=== PATIENT | female | born 1940 | race Caucasian/White ===

== ENCOUNTER 2020-07-21 12:15 | Inpatient (IN) | payer MEDICARE ==
[~2020-07-21] VITALS: Ht 162.6 cm; Wt 39.0 kg
[2020-07-21] MEDS ORDERED: ASPIRIN325 MG PO (12:24)
[2020-07-21] MEDS ORDERED: XANAX0.25 MG PO (12:24)
[2020-07-21] MEDS ORDERED: COREG6.25 MG PO (12:25)
[2020-07-21] MEDS ORDERED: ASPIRIN EC81 MG PO (12:25)
[2020-07-21] MEDS ORDERED: CLEOCIN PA75 MG/5 ML PO (12:26)
[2020-07-21] MEDS ORDERED: VITAMIN D 22000 UNIT PO (12:26)
[2020-07-21] MEDS ORDERED: CARAFATE1 G/10 ML PO (12:27)
[2020-07-21] MEDS ORDERED: ZOCOR20 MG PO (12:27)
[2020-07-21] MEDS ORDERED: COZAAR25 MG PO (12:27)
[2020-07-21] MEDS ORDERED: OMEPRAZOLE40 MG PO (12:27)
[2020-07-21] MEDS ORDERED: ULTRAM50 MG PO (12:28)
[2020-07-21 12:56] LABS: BASOPHILS 0.5 % (0-2); EOSINOPHILS 1.7 % (0-7); HEMATOCRIT 33.8 % (36.0-48.0); HEMOGLOBIN 11.2 g/dL (12-16); LYMPHOCYTES 9.3 % (15-50); MCH 28.3 pg (26.0-34.0); MCV 85.5 fL (80.0-100.0); MEAN PLATELET VOLUME 6.8 fL (7.4-10.4); MONOCYTES 7.5 % (2-11); PLATELET COUNT 202 10x3/uL (130-400); RBC 3.95 10x6/uL (4.00-5.40); RDW 15.3 % (11.5-14.5); WBC 8.3 10x3/uL (4.8-10.8)
[2020-07-21 13:09] LABS: ALBUMIN 2.2 g/dL (3.4-5.0); ALKALINE PHOSPHATASE 208 U/L (30-120); ALT (SGPT) 20 U/L (10-68); BILIRUBIN - TOTAL 1.14 mg/dL (0.2-1.3); CALCIUM 8.2 mg/dL (8.5-10.1); CARBON DIOXIDE 25.3 mmol/L (21.0-32.0); CHLORIDE - SERUM 104 mmol/L (98-107); CREATININE - SERUM 0.6 mg/dL (0.6-1.3); GLUCOSE 119 mg/dL (74-106); PROTEIN - SERUM 6.2 g/dL (6.4-8.2); UREA NITROGEN 20 mg/dL (7-18); eGFR NON AFRICAN AMERICAN > 90 mL/min (90-120)
[2020-07-21 13:25] LABS: CALC OSMOLALITY 282 mosm/kg (275-300); POTASSIUM - SERUM 3.1 mmol/L (3.5-5.1); SODIUM 140 mmol/L (136-145)
[2020-07-21 14:23] VITALS: BP 152/84
[2020-07-21 14:43] LABS: BILIRUBIN 1+ (NEGATIVE); KETONE MODERATE mg/dL (NEGATIVE); NITRITE NEGATIVE (NEGATIVE); UROBILINOGEN 2 mg/dL (< 2)
[2020-07-21 14:45] LABS: BACTERIA MANY HPF (NONE SEEN); SQUAMOUS EPITHELIAL 0-5 HPF (0-4)
[2020-07-21 16:00] VITALS: BP 153/86
--- NOTE | 2020-07-21 17:27 | NUR ---
REPORT TO ISMAEL CROCKETT
[2020-07-21 20:12] VITALS: BP 149/84
--- NOTE | 2020-07-21 20:30 | NUR ---
PT SITTING UP IN BED WITHOUT DISTRESS, ORIENTED TO SELF AND PLACE. REQUESTED AND GIVEN TRAMADOL FOR PAIN TO COCCYX AREA. WOUND VAC IN PLACE TO COCCYX. PT WAS TAKING HS MEDICATIONS WITH WATER SHE BEGAN CHOKING ON THE WATER. INCREASED HOB AND PT CONTINUED TO HAVE DIFFICULTY SWALLWING AND EVEN SPIT UP THE LAST SIP OF WATER SHE TOOK. PT STATES SHE HAS ALWAYS HAD TROUBLE SWALLOWING AND STATES SOMEONE WAS SUPPOSED TO COME TO HER HOUSE TO DO A SWALLOW STUDY SOON. MADE PT NPO AT THIS TIME AND EXPLAINED TO PT WE WOULD GET AN ORDER FOR A SWALLOW EVAL TOMORROW. PT DENIES FURTHER NEEDS AT THIS TIME. CL IN REACH, BED ALARM ON
[2020-07-21 23:12] VITALS: BMI 14.8
[2020-07-22 04:00] VITALS: BP 121/70
[2020-07-22 07:12] LABS: ALKALINE PHOSPHATASE 183 U/L (30-120); ALT (SGPT) 18 U/L (10-68); BILIRUBIN - TOTAL 0.97 mg/dL (0.2-1.3); CALC OSMOLALITY 277 mosm/kg (275-300); CARBON DIOXIDE 23.2 mmol/L (21.0-32.0); CHLORIDE - SERUM 106 mmol/L (98-107); CREATININE - SERUM 0.5 mg/dL (0.6-1.3); GLUCOSE 83 mg/dL (74-106); POTASSIUM - SERUM 3.5 mmol/L (3.5-5.1); PROTEIN - SERUM 5.8 g/dL (6.4-8.2); SODIUM 139 mmol/L (136-145); UREA NITROGEN 16 mg/dL (7-18); eGFR NON AFRICAN AMERICAN > 90 mL/min (90-120)
[2020-07-22 07:14] LABS: BASOPHILS 0.6 % (0-2); EOSINOPHILS 1.6 % (0-7); HEMATOCRIT 31.9 % (36.0-48.0); HEMOGLOBIN 10.7 g/dL (12-16); LYMPHOCYTES 11.4 % (15-50); MCHC 33.6 g/dL (31.0-37.0); MCV 86.2 fL (80.0-100.0); MEAN PLATELET VOLUME 7.4 fL (7.4-10.4); MONOCYTES 6.4 % (2-11); WBC 6.8 10x3/uL (4.8-10.8)
[2020-07-22 07:24] LABS: PLATELET COUNT 144 10x3/uL (130-400)
[2020-07-22 08:42] VITALS: BP 130/81
--- NOTE | 2020-07-22 10:07 | NUR ---
ALERT AND ORIENTED. ASSESSMENT COMPLETE. DENIES NEEDS. BED LOW. CALL PAULSON AND PERSONAL ITEMS IN REACH. SPOKE WITH JAZMYN AT [facility] ORDERS PLACED TO CONTINUE WOUND VAC CHANGED THREE TIMES WEEKLY PER DR LEÓN. ALSO SPOKE WITH PATIENT'S SON, LEE. SECURITY CODE GIVEN TO LEE PER PATIENT REQUEST. DENIES QUESTIONS OR CONCERNS AT THIS TIME.
--- NOTE | 2020-07-22 12:04 | NUR ---
SPECIALTY AIR BED PLACED ON BED.
[2020-07-22 12:05] VITALS: Ht 162.6 cm; Wt 39.0 kg
[2020-07-22 12:53] VITALS: BP 135/76
--- NOTE | 2020-07-22 13:30 | NUR ---
PATIENT REFUSING WOUND VAC CHANGE AT THIS TIME. WILL ATTEMP AGAIN.
--- NOTE | 2020-07-22 16:00 | NUR ---
PATIENT REFUSING WOUND VAC CHANGE AT THIS TIME AGAIN. STATES TO COME BACK LATER.
[2020-07-22 17:05] VITALS: BP 130/70
--- NOTE | 2020-07-22 17:43 | NUR ---
WOUND VAC DRSG CHANGED TO PATIENT'S SACRAL AREA. PATIENT'S HOME WOUND VAC DURING DRSG CHANGE. PATIENT DID NOT BRING PHARMACEUTICAL SALESPERSON TO HOSPITAL. CALLED HOUSE SUP FOR HOSPITAL WOUND VAC. WAITING WOUND VAC.
--- NOTE | 2020-07-22 17:45 | NUR ---
HOUSE SUP WOULD NOT BRING WOUND VAC TO FLOOR. STATES PATIENT WAS HERE ALL DAY AND COULD HAVE CALLED EARLIER. PATIENT'S HOME WOUND VAC JUST AT 1730. WENT TO PACU TO GET WOUND VAC. FORM FILLED OUT BY NURSE AND ON PATIENT'S WALL. NEW WOUND VAC PLACED.
[2020-07-22 21:57] VITALS: BP 122/70
[2020-07-23 01:40] VITALS: BP 134/71
--- NOTE | 2020-07-23 03:56 | NUR ---
I have reviewed this patient and I concur with the Shift Assessment completed by the Licensed Practical Nurse today this shift.
[2020-07-23 05:41] LABS: BASOPHILS 0.5 % (0-2); EOSINOPHILS 1.3 % (0-7); HEMOGLOBIN 10.7 g/dL (12-16); MCH 29.5 pg (26.0-34.0); MCHC 34.6 g/dL (31.0-37.0); MCV 85.2 fL (80.0-100.0); MEAN PLATELET VOLUME 7.4 fL (7.4-10.4); MONOCYTES 7.1 % (2-11); NEUTROPHILS 81.1 % (40-80); PLATELET COUNT 138 10x3/uL (130-400); RBC 3.64 10x6/uL (4.00-5.40); RDW 15.2 % (11.5-14.5)
[2020-07-23 05:45] LABS: WBC 4.5 10x3/uL (4.8-10.8)
[2020-07-23 06:09] LABS: CALC OSMOLALITY 280 mosm/kg (275-300); CALCIUM 7.6 mg/dL (8.5-10.1); CARBON DIOXIDE 23.9 mmol/L (21.0-32.0); CHLORIDE - SERUM 107 mmol/L (98-107); CREATININE - SERUM 0.5 mg/dL (0.6-1.3); SODIUM 139 mmol/L (136-145); UREA NITROGEN 12 mg/dL (7-18); eGFR NON AFRICAN AMERICAN > 90 mL/min (90-120)
[2020-07-23 06:11] LABS: GLUCOSE 144 mg/dL (74-106)
[2020-07-23 06:38] VITALS: BP 150/70
[2020-07-23 09:28] VITALS: BP 144/66
[2020-07-23 12:16] VITALS: BP 158/84
[2020-07-23 20:00] VITALS: BP 120/75
[2020-07-24 00:53] VITALS: BP 155/87
--- NOTE | 2020-07-24 02:30 | NUR ---
PT'S IV LEAKING. RESITED 20G IV TO LEFT AC BY ISMAEL CANO. PT C/O PAIN 8 AT COCCYX. GAVE MORPHINE 2MG IV PUSH. CHANGED PT INCONTINENT OF B/B. NO OTHER NEEDS. WILL CONTINUE TO MONITOR.
[2020-07-24 04:00] VITALS: BP 151/83
[2020-07-24 08:53] VITALS: BP 159/104
--- NOTE | 2020-07-24 09:45 | NUR ---
PT RESTING QUIETLY IN BED. NO ACUTE DISTRESS NOTED. IV TO LEFT AC WITH D5NS @ 75ML/HR INFUSING VIA PUMP. SITE WITHOUT REDNESS OR EDEMA. WOUND VAC INTACT TO COCCYX AREA. PT DENIES FURTHER NEEDS AT THIS TIME. CL WITHIN REACH. ENCOURAGED TO CALL WITH NEEDS. CONTINUE POC
[2020-07-24 12:58] VITALS: BP 120/51
[2020-07-24 13:28] LABS: CALC OSMOLALITY 281 mosm/kg (275-300); CALCIUM 7.7 mg/dL (8.5-10.1); CARBON DIOXIDE 21.8 mmol/L (21.0-32.0); CHLORIDE - SERUM 110 mmol/L (98-107); CREATININE - SERUM 0.6 mg/dL (0.6-1.3); GLUCOSE 141 mg/dL (74-106); POTASSIUM - SERUM 3.2 mmol/L (3.5-5.1); SODIUM 141 mmol/L (136-145); UREA NITROGEN 11 mg/dL (7-18); eGFR NON AFRICAN AMERICAN > 90 mL/min (90-120)
[2020-07-24 17:11] VITALS: BP 177/104
[2020-07-24 20:00] VITALS: BP 142/82
[2020-07-25] VITALS: BP 153/92
[2020-07-25 04:00] VITALS: BP 131/74
[2020-07-25 05:31] LABS: BASOPHILS 0.7 % (0-2); EOSINOPHILS 2.4 % (0-7); HEMATOCRIT 35.1 % (36.0-48.0); HEMOGLOBIN 11.8 g/dL (12-16); LYMPHOCYTES 12.5 % (15-50); MCH 29.4 pg (26.0-34.0); MCHC 33.7 g/dL (31.0-37.0); MEAN PLATELET VOLUME 6.8 fL (7.4-10.4); NEUTROPHILS 76.4 % (40-80); RBC 4.02 10x6/uL (4.00-5.40); RDW 15.5 % (11.5-14.5)
[2020-07-25 05:53] LABS: CALC OSMOLALITY 289 mosm/kg (275-300); CALCIUM 7.6 mg/dL (8.5-10.1); CHLORIDE - SERUM 112 mmol/L (98-107); CREATININE - SERUM 0.6 mg/dL (0.6-1.3); GLUCOSE 135 mg/dL (74-106); SODIUM 145 mmol/L (136-145); UREA NITROGEN 11 mg/dL (7-18); eGFR NON AFRICAN AMERICAN > 90 mL/min (90-120)
[2020-07-25 05:55] LABS: MCV 87.3 fL (80.0-100.0); PLATELET COUNT 217 10x3/uL (130-400); WBC 7.4 10x3/uL (4.8-10.8)
[2020-07-25 06:19] LABS: POTASSIUM - SERUM 2.8 mmol/L (3.5-5.1)
--- NOTE | 2020-07-25 07:16 | NUR ---
0700 BEDSIDE REPORT RECEIVED RESTING QUIETLY IN BED WITH EYES CLOSED
--- NOTE | 2020-07-25 08:24 | NUR ---
0800 DR WALLER AT BEDSIDE CONVERSING WITH PATIENT PLANNING CASE MANAGEMENT FOR POSSIBLE PLACEMENT IN [facility]
[2020-07-25 10:07] VITALS: BP 153/97
[2020-07-25 12:50] VITALS: BP 157/99
--- NOTE | 2020-07-25 14:06 | MORECARE ---
CASE MANAGEMENT DISCHARGE SUMMARY PATIENT: DONALD MARIE UNIT: [id number] ADM DATE: 07/22/20 AGE: 79 : 42 SEX: F ROOM/BED: [facility] AUTHOR: MAZINDOC PHYSICIAN: REFERRING PHYSICIAN: IVÁN LEÓN MD DATE OF SERVICE: 07/25/20 Case Management Discharge Planning Summary DCP REVIEW SUMMARY ANTICIPATED D/C DATE: EXPECTED LOS : CASE STATUS: DCP Initiated INITIAL REVIEW: 07/21/2020 INITIAL REVIEWER: Holly Gonzalez FINAL DISCHARGE DISPOSITION: : FINAL REVIEWER: FINAL REVIEW DATE: DCP Focus Questions & Answers DCP Screen QUESTION: ANSWER High Risk Factors: : Polypharmacy (greater than 10 meds) DCP Evaluation QUESTION: ANSWER Patient's ability to cope with chronic illness : d. No chronic illness Would patient like to participate in any Care Coordination programs (if applicable): : Not applicable Mental health screen: : No mental health history DCP Re-evaluation QUESTION: ANSWER Would patient like to participate in any Care Coordination programs (if applicable): : Not applicable PATIENT: DONALD MARIE ENCOUNTER: [id number] MEDICAL RECORD#: [id number] ADMISSION DATE: 07/22/2020 DISCHARGE DATE: ATTENDING MD: IVÁN ANGELES : AGE: 79 MARITAL STATUS: M DC PLAN ID: [id number] FACILITY: [facility] PRINTED ON: 07/25/20 14:06 CT All edits/amendments must be made on the electronic document DICTATION DATE: 07/25/201405 LEATHER ROLLER: FRANCESCO 07/25/20 1406 RPT#: [id number] DC DATE: STATUS: ADM IN [facility] [address] [place] [address] END OF REPORT
--- NOTE | 2020-07-25 14:44 | MORECARE ---
CASE MANAGEMENT DISCHARGE SUMMARY PATIENT: DONALD MARIE UNIT: [id number] ADM DATE: 07/22/20 AGE: 79 : 42 SEX: F ROOM/BED: D.2206 AUTHOR: MAZIN,DOC PHYSICIAN: REFERRING PHYSICIAN: IVÁN LEÓN MD DATE OF SERVICE: 07/25/20 Case Management Discharge Planning Summary COMMENTS ENTERED DATE: 07/25/20 14:32 CT COMMENT TYPE: Discharge Planning REVIEWER: Holly Gonzalez CLINICALS FAXED TO [facility]. WAITING CALL BACK. Appended by Holly Gonzalez on 07/25/2020 14:33 CDT: ERROR! CLINICALS WERE FAXED TO [facility] FOR SNF. DCP REVIEW SUMMARY ANTICIPATED D/C DATE: EXPECTED LOS : CASE STATUS: DCP Initiated INITIAL REVIEW: 07/21/2020 INITIAL REVIEWER: Holly Gonzalez FINAL DISCHARGE DISPOSITION: : FINAL REVIEWER: FINAL REVIEW DATE: DCP Focus Questions & Answers DCP Screen QUESTION: ANSWER High Risk Factors: : Polypharmacy (greater than 10 meds) DCP Evaluation QUESTION: ANSWER Patient's ability to cope with chronic illness : d. No chronic illness Would patient like to participate in any Care Coordination programs (if applicable): : Not applicable Mental health screen: : No mental health history DCP Re-evaluation QUESTION: ANSWER Would patient like to participate in any Care Coordination programs (if applicable): : Not applicable PROVIDER NETWORKING REVIEW DATE: 07/25/2020 SERVICE TYPE: [facility] REVIEWER: Holly Gonzalez PATIENT: DONALD MARIE ENCOUNTER: [id number] MEDICAL RECORD#: [id number] ADMISSION DATE: 07/22/2020 DISCHARGE DATE: ATTENDING MD: IVÁN ANGELES : AGE: 79 MARITAL STATUS: M DC PLAN ID: [id number] FACILITY: [facility] PRINTED ON: 07/25/20 14:44 CT All edits/amendments must be made on the electronic document DICTATION DATE: 07/25/201443 LANDSCAPER HELPER: FRANCESCO 07/25/201443 RPT#: [id number] DC DATE: STATUS: ADM IN [facility] [address] [place] [address] END OF REPORT
[2020-07-25 18:13] VITALS: BP 147/101
--- NOTE | 2020-07-25 19:45 | NUR ---
RECEIVED BEDSIDE REPORT. PT LAYING IN BED, A&O CONFUSED AT TIMES. PIV TO LEFT FOREARM PATENT AND INFUSING NO REDNESS OR SWELLING. STAGE 2 ULCER, WOUND VAC IN PLACE, DRAINING TO SUCTION. PT BEDFAST, TOTAL CARE. EDUCATED PT ON CL AND NEEDS, VERBALIZED UNDERSTANDING. BED LOW, CL IN REACH.
[2020-07-25 20:00] VITALS: BP 98/69
[2020-07-26] VITALS: BP 111/67
[2020-07-26 04:00] VITALS: BP 114/70
[2020-07-26 05:01] LABS: BASOPHILS 0.5 % (0-2); EOSINOPHILS 1.4 % (0-7); HEMATOCRIT 32.6 % (36.0-48.0); LYMPHOCYTES 12.1 % (15-50); MCH 28.9 pg (26.0-34.0); MCHC 33.8 g/dL (31.0-37.0); MCV 85.4 fL (80.0-100.0); MONOCYTES 7.4 % (2-11); NEUTROPHILS 78.6 % (40-80); PLATELET COUNT 188 10x3/uL (130-400); RBC 3.82 10x6/uL (4.00-5.40); RDW 15.4 % (11.5-14.5); WBC 6.9 10x3/uL (4.8-10.8)
[2020-07-26 05:16] LABS: CALC OSMOLALITY 292 mosm/kg (275-300); CALCIUM 7.2 mg/dL (8.5-10.1); CARBON DIOXIDE 19.1 mmol/L (21.0-32.0); CHLORIDE - SERUM 115 mmol/L (98-107); CREATININE - SERUM 0.6 mg/dL (0.6-1.3); GLUCOSE 176 mg/dL (74-106); PHOSPHOROUS 2.3 mg/dL (2.5-4.9); SODIUM 145 mmol/L (136-145); UREA NITROGEN 13 mg/dL (7-18); eGFR NON AFRICAN AMERICAN > 90 mL/min (90-120)
[2020-07-26 05:18] LABS: POTASSIUM - SERUM 3.8 mmol/L (3.5-5.1)
--- NOTE | 2020-07-26 08:21 | MORECARE ---
CASE MANAGEMENT DISCHARGE SUMMARY PATIENT: DONALD MARIE UNIT: [id number] ADM DATE: 07/22/20 AGE: 79 : 42 SEX: F ROOM/BED: D.2206 AUTHOR: MAZIN,DOC PHYSICIAN: REFERRING PHYSICIAN: IVÁN LEÓN MD DATE OF SERVICE: 07/26/20 Case Management Discharge Planning Summary COMMENTS ENTERED DATE: 07/26/20 8:11 CT COMMENT TYPE: Discharge Planning REVIEWER: Mitzi Crawley CALLED AND LEFT MESSAGE WITH GENNA AT [facility] ABOUT THE REFERRAL WILL WAIT TO HEAR BACK FROM HER ENTERED DATE: 07/25/20 14:32 CT COMMENT TYPE: Discharge Planning REVIEWER: Holly Gonzalez CLINICALS FAXED TO [facility]. WAITING CALL BACK. Appended by Holly Gonzalez on 07/25/2020 14:33 CDT: ERROR! CLINICALS WERE FAXED TO [facility] FOR SNF. DCP REVIEW SUMMARY ANTICIPATED D/C DATE: EXPECTED LOS : CASE STATUS: DCP Initiated INITIAL REVIEW: 07/21/2020 INITIAL REVIEWER: Holly Gonzalez FINAL DISCHARGE DISPOSITION: : FINAL REVIEWER: FINAL REVIEW DATE: DCP Focus Questions & Answers DCP Screen QUESTION: ANSWER High Risk Factors: : Polypharmacy (greater than 10 meds) DCP Evaluation QUESTION: ANSWER Patient's ability to cope with chronic illness : d. No chronic illness Would patient like to participate in any Care Coordination programs (if applicable): : Not applicable Mental health screen: : No mental health history DCP Re-evaluation QUESTION: ANSWER Would patient like to participate in any Care Coordination programs (if applicable): : Not applicable PROVIDER NETWORKING REVIEW DATE: 07/25/2020 SERVICE TYPE: Nursing Home Facility REVIEWER: Holly Gonzalez PATIENT: DONALD MARIE ENCOUNTER: [id number] MEDICAL RECORD#: [id number] ADMISSION DATE: 07/22/2020 DISCHARGE DATE: ATTENDING MD: IVÁN ANGELES : AGE: 79 MARITAL STATUS: M DC PLAN ID: [id number] FACILITY: [facility] PRINTED ON: 07/26/20 8:21 CT All edits/amendments must be made on the electronic document DICTATION DATE: 07/26/20820 NARROW FABRIC LOOM FIXER: FRANCESCO 07/26/20820 RPT#: [id number] DC DATE: STATUS: ADM IN [facility] [address] [place] [address] END OF REPORT
[2020-07-26 08:56] VITALS: BP 125/72
--- NOTE | 2020-07-26 09:57 | MORECARE ---
CASE MANAGEMENT DISCHARGE SUMMARY PATIENT: DONALD MARIE UNIT: [id number] ADM DATE: 07/22/20 AGE: 79 : 42 SEX: F ROOM/BED: D.2206 AUTHOR: MAZIN,DOC PHYSICIAN: REFERRING PHYSICIAN: IVÁN LEÓN MD DATE OF SERVICE: 07/26/20 Case Management Discharge Planning Summary COMMENTS ENTERED DATE: 07/26/20 9:51 CT COMMENT TYPE: Discharge Planning REVIEWER: Mitzi Crawley SPOKE WITH GENNA AT [facility] , SOON THE OT AND PT MALIKAL GET IN THE SYSTEM, I WILL SEND THEM TO HER AND SHE WILL GET BACK WITH ME CM TO FOLLOW AND ASSIST ENTERED DATE: 07/26/20 8:11 CT COMMENT TYPE: Discharge Planning REVIEWER: Mitzi Crawley CALLED AND LEFT MESSAGE WITH GENNA AT [facility] ABOUT THE REFERRAL WILL WAIT TO HEAR BACK FROM HER ENTERED DATE: 07/25/20 14:32 CT COMMENT TYPE: Discharge Planning REVIEWER: Holly Gonzalez CLINICALS FAXED TO [facility]. WAITING CALL BACK. Appended by Holly Gonzalez on 07/25/2020 14:33 CDT: ERROR! CLINICALS WERE FAXED TO [facility] FOR SNF. DCP REVIEW SUMMARY ANTICIPATED D/C DATE: EXPECTED LOS : CASE STATUS: DCP Initiated INITIAL REVIEW: 07/21/2020 INITIAL REVIEWER: Holly Gonzalez FINAL DISCHARGE DISPOSITION: : FINAL REVIEWER: FINAL REVIEW DATE: DCP Focus Questions & Answers DCP Screen QUESTION: ANSWER High Risk Factors: : Polypharmacy (greater than 10 meds) DCP Evaluation QUESTION: ANSWER Patient's ability to cope with chronic illness : d. No chronic illness Would patient like to participate in any Care Coordination programs (if applicable): : Not applicable Mental health screen: : No mental health history DCP Re-evaluation QUESTION: ANSWER Would patient like to participate in any Care Coordination programs (if applicable): : Not applicable PROVIDER NETWORKING REVIEW DATE: 07/25/2020 SERVICE TYPE: [facility]irement Facility REVIEWER: Holly Gonzalez PATIENT: DONALD MARIE ENCOUNTER: [id number] MEDICAL RECORD#: [id number] ADMISSION DATE: 07/22/2020 DISCHARGE DATE: ATTENDING MD: IVÁN ANGELES : AGE: 79 MARITAL STATUS: M DC PLAN ID: [id number] FACILITY: [facility] PRINTED ON: 07/26/20 9:57 CT All edits/amendments must be made on the electronic document DICTATION DATE: 07/26/20956 PATHOLOGY SECRETARY: FRANCESCO 07/26/20956 RPT#: [id number] DC DATE: STATUS: ADM IN [facility] [address] [place] [address] END OF REPORT
[2020-07-26 12:38] VITALS: BP 116/5
--- NOTE | 2020-07-26 12:53 | NUR ---
Nutrition follow-up: Pt sleeping during RD rounds. RD will visit at a later time. Diet order: Regular mechanical soft with ground meat; no straws PO intake ~25% of meals Wound VAC to coccyx labs reviewed +BM Wt: 86# Pt with nutrition diagnosis of severe malnutrition. PO intake continues to be poor. Recommend an appetite stimulant. RDN will order Ensure, Magic Cup to increase kcal, protein intake. Recommend Ivan nutritional supplement, 1 pkt BID mixed in juice; Also recommend a daily MVI, 220 mg Zinc, 1000 mg Vitamin C to aid with wound healing. RDN will follow-up on pts progress toward nutrition goals in 2-3 days.
[2020-07-26 17:24] VITALS: BP 140/78
--- NOTE | 2020-07-26 19:45 | NUR ---
RECEIVED BEDSIDE REPORT. PT LAYING IN BED, DISORIENTATED TO TIME AND SITUATION AT TIMES. PIV TO LEFT FOREARM PATENT AND INFUSING, NO REDNESS OR SWELLING. CAMPO. STAGE 2 ULCER TO COCCYX, WOUND VAC IN PLACE. FALL PRECAUTIONS IN PLACE. BED LOW, CL IN REACH.
[2020-07-26 20:00] VITALS: BP 125/85
[2020-07-27] VITALS (7 sets, daily range): BP systolic 106–146; BP diastolic 44–94
--- NOTE | 2020-07-27 01:55 | NUR ---
CHANGED DRSG TO COCCYX, WOUND BED RED AND BEEFY, APPEARS TO BE HEALING WELL. WOUND VAC DRAINING TO SUCTION, PATENT, NO LEAKS. PT TOLERATED WELL. BED LOW, CL IN REACH.
[2020-07-27 06:18] LABS: BASOPHILS 0.4 % (0-2); EOSINOPHILS 1.1 % (0-7); HEMATOCRIT 34.5 % (36.0-48.0); HEMOGLOBIN 11.5 g/dL (12-16); LYMPHOCYTES 9.7 % (15-50); MCH 28.8 pg (26.0-34.0); MCHC 33.3 g/dL (31.0-37.0); MCV 86.7 fL (80.0-100.0); MEAN PLATELET VOLUME 6.7 fL (7.4-10.4); MONOCYTES 7.7 % (2-11); NEUTROPHILS 81.1 % (40-80); RBC 3.98 10x6/uL (4.00-5.40); RDW 15.8 % (11.5-14.5)
[2020-07-27 07:04] LABS: CALC OSMOLALITY 296 mosm/kg (275-300); CALCIUM 7.6 mg/dL (8.5-10.1); CARBON DIOXIDE 18.7 mmol/L (21.0-32.0); CREATININE - SERUM 0.6 mg/dL (0.6-1.3); GLUCOSE 134 mg/dL (74-106); SODIUM 148 mmol/L (136-145); UREA NITROGEN 16 mg/dL (7-18); eGFR NON AFRICAN AMERICAN > 90 mL/min (90-120)
[2020-07-27 07:18] LABS: POTASSIUM - SERUM 3.1 mmol/L (3.5-5.1)
[2020-07-27 07:19] LABS: CHLORIDE - SERUM 116 mmol/L (98-107); PLATELET COUNT 275 10x3/uL (130-400)
--- NOTE | 2020-07-27 10:29 | MORECARE ---
CASE MANAGEMENT DISCHARGE SUMMARY PATIENT: DONALD MARIE UNIT: [id number] ADM DATE: 07/22/20 AGE: 79 : 42 SEX: F ROOM/BED: D.2206 AUTHOR: MAZIN,DOC PHYSICIAN: REFERRING PHYSICIAN: IVÁN LEÓN MD DATE OF SERVICE: 07/27/20 Case Management Discharge Planning Summary COMMENTS ENTERED DATE: 07/27/20 10:17 CT COMMENT TYPE: Discharge Planning REVIEWER: Mitzi Crawley CALLED GENNA AT [facility] FOR AN UPDATE. SHE IS NEEDING THE WOUND MEASURMENTS I HAVE ASKED NURSING TO GET ME THEM SO I CAN FAX THEM TO [facility] TO FOLLOW AND ASSIST NEEDED ENTERED DATE: 07/26/20 9:51 CT COMMENT TYPE: Discharge Planning REVIEWER: Mitzi Crawley SPOKE WITH GENNA AT [facility] , SOON THE OT AND PT EVAL GET IN THE SYSTEM, I WILL SEND THEM TO HER AND SHE WILL GET BACK WITH ME TO FOLLOW AND ASSIST ENTERED DATE: 07/26/20 8:11 CT COMMENT TYPE: Discharge Planning REVIEWER: Mitzi Crawley CALLED AND LEFT MESSAGE WITH GENNA AT [facility] ABOUT THE REFERRAL WILL WAIT TO HEAR BACK FROM HER ENTERED DATE: 07/25/20 14:32 CT COMMENT TYPE: Discharge Planning REVIEWER: Holly Gonzalez CLINICALS FAXED TO [facility]. WAITING CALL BACK. Appended by Holly Gonzalez on 07/25/2020 14:33 CDT: ERROR! CLINICALS WERE FAXED TO [facility] FOR SNF. DCP REVIEW SUMMARY ANTICIPATED D/C DATE: EXPECTED LOS : CASE STATUS: DCP Initiated INITIAL REVIEW: 07/21/2020 INITIAL REVIEWER: Holly Gonzalez FINAL DISCHARGE DISPOSITION: : FINAL REVIEWER: FINAL REVIEW DATE: DCP Focus Questions & Answers DCP Screen QUESTION: ANSWER High Risk Factors: : Polypharmacy (greater than 10 meds) DCP Evaluation QUESTION: ANSWER Patient's ability to cope with chronic illness : d. No chronic illness Would patient like to participate in any Care Coordination programs (if applicable): : Not applicable Mental health screen: : No mental health history DCP Re-evaluation QUESTION: ANSWER Would patient like to participate in any Care Coordination programs (if applicable): : Not applicable PROVIDER NETWORKING REVIEW DATE: 07/25/2020 SERVICE TYPE: Long-Term Facility REVIEWER: Holly Gonzalez PATIENT: DONALD MARIE ENCOUNTER: [id number] MEDICAL RECORD#: [id number] ADMISSION DATE: 07/22/2020 DISCHARGE DATE: ATTENDING MD: IVÁN ANGELES : AGE: 79 MARITAL STATUS: M DC PLAN ID: [id number] FACILITY: [facility] PRINTED ON: 07/27/20 10:29 CT All edits/amendments must be made on the electronic document DICTATION DATE: 07/27/20 1029 BULL WHEEL WORKER: FRANCESCO 07/27/20 1029 RPT#: [id number] DC DATE: STATUS: ADM IN [facility] [address] [place] [address] END OF REPORT
--- NOTE | 2020-07-27 12:24 | MORECARE ---
CASE MANAGEMENT DISCHARGE SUMMARY PATIENT: DONALD MARIE UNIT: [id number] ADM DATE: 07/22/20 AGE: 79 : 42 SEX: F ROOM/BED: D.2206 AUTHOR: MAZIN,DOC PHYSICIAN: REFERRING PHYSICIAN: IVÁN LEÓN MD DATE OF SERVICE: 07/27/20 Case Management Discharge Planning Summary COMMENTS ENTERED DATE: 07/27/20 10:17 CT COMMENT TYPE: Discharge Planning REVIEWER: Mitzi Crawley CALLED GENNA AT [facility] FOR AN UPDATE. SHE IS NEEDING THE WOUND MEASURMENTS I HAVE ASKED NURSING TO GET ME THEM SO I CAN FAX THEM TO [facility] TO FOLLOW AND ASSIST NEEDED ENTERED DATE: 07/26/20 9:51 CT COMMENT TYPE: Discharge Planning REVIEWER: Mitzi Crawley SPOKE WITH GENNA AT [facility] , SOON THE OT AND PT EVAL GET IN THE SYSTEM, I WILL SEND THEM TO HER AND SHE WILL GET BACK WITH ME TO FOLLOW AND ASSIST ENTERED DATE: 07/26/20 8:11 CT COMMENT TYPE: Discharge Planning REVIEWER: Mitzi Crawley CALLED AND LEFT MESSAGE WITH GENNA AT [facility] ABOUT THE REFERRAL WILL WAIT TO HEAR BACK FROM HER ENTERED DATE: 07/25/20 14:32 CT COMMENT TYPE: Discharge Planning REVIEWER: Holly Gonzalez CLINICALS FAXED TO [facility]. WAITING CALL BACK. Appended by Holly Gonzalez on 07/25/2020 14:33 CDT: ERROR! CLINICALS WERE FAXED TO [facility] FOR SNF. DCP REVIEW SUMMARY ANTICIPATED D/C DATE: EXPECTED LOS : CASE STATUS: DCP Initiated INITIAL REVIEW: 07/21/2020 INITIAL REVIEWER: Holly Gonzalez FINAL DISCHARGE DISPOSITION: : FINAL REVIEWER: FINAL REVIEW DATE: DCP Focus Questions & Answers DCP Screen QUESTION: ANSWER High Risk Factors: : Polypharmacy (greater than 10 meds) DCP Evaluation QUESTION: ANSWER Patient's ability to cope with chronic illness : d. No chronic illness Would patient like to participate in any Care Coordination programs (if applicable): : Not applicable Mental health screen: : No mental health history DCP Re-evaluation QUESTION: ANSWER Would patient like to participate in any Care Coordination programs (if applicable): : Not applicable PROVIDER NETWORKING REVIEW DATE: 07/25/2020 SERVICE TYPE: [facility] Facility REVIEWER: Holly Gonzalez PATIENT: DONALD MARIE ENCOUNTER: [id number] MEDICAL RECORD#: [id number] ADMISSION DATE: 07/22/2020 DISCHARGE DATE: ATTENDING MD: IVÁN ANGELES : AGE: 79 MARITAL STATUS: M DC PLAN ID: [id number] FACILITY: [facility] PRINTED ON: 07/27/20 12:23 CT All edits/amendments must be made on the electronic document DICTATION DATE: 07/27/20 122 AERODYNAMIC CONSULTANT: FRANCESCO 07/27/20 1223 RPT#: [id number] DC DATE: STATUS: ADM IN [facility] [address] [place] [address] END OF REPORT
--- NOTE | 2020-07-27 16:48 | NUR ---
OT NOTE: PT INITIALLY RESISTANT TO GET UP FOR THERAPY STATING THAT SHE WAS VERY TIRED, HOWEVER, AFTER SOME ENCOURAGEMENT, PT AGREEABLE TO PARTICIPATE. PRACTICED ROLLING FROM SIDE TO SIDE WITH MOD ASSIST AND TACTILE CUES FOR FOOT AND HAND PLACEMENT TO ALLOW PT TO PERFORM MUCH POSSIBLE ON HER OWN. SUPINE TO SIT WITH MOD ASSIST; ABLE TO SCOOT TO EOB WITH MAX ASSIST. STATIC SITTING WAS BETTER TODAY. PT PROVIDED WITH WASH CLOTH AND WAS ABLE TO WASH FACE, HANDS, AND CHEST..REQUIRED MAX ASSIST WITH BACK, LES, AND PERINEAL. SIT TO STAND WITH WALKER WITH MOD ASSIST..ABLE TO TOLERATE STANDING FOR APPRIX 1 MIN WHILE PERINEAL CARE PERFORMED. ABLE TO PERFORM UE AROM EXS WHILE SITTING ON EOB.. MAX ASSIST WITH SIT TO SUPINE AND POSITION ON HER SIDE. JAZMYN ASHRAF,OTR/L [phone]
[2020-07-27 17:13] LABS: POTASSIUM - SERUM 2.9 mmol/L (3.5-5.1)
--- NOTE | 2020-07-27 19:45 | NUR ---
RECEIVED BEDSIDE REPORT. PT LAYING IN BED ORIENTATED TO SELF AND PLACE. PIV TO LEFT FOREARM, PATENT AND INFUSING, NO REDNESS OR SWELLING. STAGE 2 PRESSURE ULCER, WOUND VAC IN PLACE PATENT AND DRAINING TO SUCTION. BED LOW, ALARM ON, CL IN REACH.
[2020-07-28] VITALS: BP 106/66; BP 116/78
[2020-07-28 04:00] VITALS: BP 130/65
[2020-07-28 06:34] LABS: BASOPHILS 0.4 % (0-2); EOSINOPHILS 1.9 % (0-7); HEMATOCRIT 32.3 % (36.0-48.0); HEMOGLOBIN 10.8 g/dL (12-16); LYMPHOCYTES 13.4 % (15-50); MCH 28.7 pg (26.0-34.0); MCHC 33.3 g/dL (31.0-37.0); MCV 86.1 fL (80.0-100.0); MEAN PLATELET VOLUME 6.8 fL (7.4-10.4); MONOCYTES 8.9 % (2-11); NEUTROPHILS 75.4 % (40-80); PLATELET COUNT 248 10x3/uL (130-400); RBC 3.75 10x6/uL (4.00-5.40); RDW 15.8 % (11.5-14.5); WBC 8.9 10x3/uL (4.8-10.8)
[2020-07-28 07:00] LABS: CALC OSMOLALITY 287 mosm/kg (275-300); CALCIUM 7.7 mg/dL (8.5-10.1); CARBON DIOXIDE 17.4 mmol/L (21.0-32.0); CHLORIDE - SERUM 115 mmol/L (98-107); CREATININE - SERUM 0.5 mg/dL (0.6-1.3); GLUCOSE 116 mg/dL (74-106); POTASSIUM - SERUM 3.3 mmol/L (3.5-5.1); SODIUM 143 mmol/L (136-145); UREA NITROGEN 17 mg/dL (7-18); eGFR NON AFRICAN AMERICAN > 90 mL/min (90-120)
--- NOTE | 2020-07-28 07:32 | MORECARE ---
CASE MANAGEMENT DISCHARGE SUMMARY PATIENT: DONALD MARIE UNIT: [id number] ADM DATE: 07/22/20 AGE: 79 : 42 SEX: F ROOM/BED: D.2206 AUTHOR: MAZIN,DOC PHYSICIAN: REFERRING PHYSICIAN: IVÁN LEÓN MD DATE OF SERVICE: 07/28/20 Case Management Discharge Planning Summary COMMENTS ENTERED DATE: 07/28/20 7:27 CT COMMENT TYPE: Discharge Planning REVIEWER: Imtzi Denisa SPOKE WITH THE PATIENTS SON YESTERDAY EVENING AND HE ASKED ABOUT HIS MOTHERS OPTIONS AND HE STATED THAT HIS MOTHER ASKED IF SHE COULD GO TO [facility]. I EXPLAINED TO HIM THAT I HAD SENT A REFERRAL ALREADY TO [facility], BUT I WOULD BE HAPPY TO SEND IT TO [facility]. HE WOULD LIKE ME TO DO THAT AND THEN GIVEN HIS MOM THE OPTION IF SHE IS ACCEPTED AT BOTH. I HAVE SENT THE REFERRAL THIS MORNING TO [facility] AND NOTIFIED NEFTALY MAYERS TO FOLLOW AND ASSIST ENTERED DATE: 07/27/20 10:17 CT COMMENT TYPE: Discharge Planning REVIEWER: Mitzi Denisa CALLED GENNA AT [facility] FOR AN UPDATE. SHE IS NEEDING THE WOUND MEASURMENTS I HAVE ASKED NURSING TO GET ME THEM SO I CAN FAX THEM TO [facility] TO FOLLOW AND ASSIST NEEDED ENTERED DATE: 07/26/20 9:51 CT COMMENT TYPE: Discharge Planning REVIEWER: Mitzi Crawley SPOKE WITH GENNA AT [facility] , SOON THE OT AND PT EVAL GET IN THE SYSTEM, I WILL SEND THEM TO HER AND SHE WILL GET BACK WITH ME CM TO FOLLOW AND ASSIST ENTERED DATE: 07/26/20 8:11 CT COMMENT TYPE: Discharge Planning REVIEWER: Mitzi Crawley CALLED AND LEFT MESSAGE WITH GENNA AT [facility] ABOUT THE REFERRAL WILL WAIT TO HEAR BACK FROM HER ENTERED DATE: 07/25/20 14:32 CT COMMENT TYPE: Discharge Planning REVIEWER: Holly Gonzalez CLINICALS FAXED TO [facility]. WAITING CALL BACK. Appended by Holly Gonzalez on 07/25/2020 14:33 CDT: ERROR! CLINICALS WERE FAXED TO [facility] FOR SNF. DCP REVIEW SUMMARY ANTICIPATED D/C DATE: EXPECTED LOS : CASE STATUS: DCP Initiated INITIAL REVIEW: 07/21/2020 INITIAL REVIEWER: Holly Gonzalez FINAL DISCHARGE DISPOSITION: : FINAL REVIEWER: FINAL REVIEW DATE: DCP Focus Questions & Answers DCP Screen QUESTION: ANSWER High Risk Factors: : Polypharmacy (greater than 10 meds) DCP Evaluation QUESTION: ANSWER Patient's ability to cope with chronic illness : d. No chronic illness Would patient like to participate in any Care Coordination programs (if applicable): : Not applicable Mental health screen: : No mental health history DCP Re-evaluation QUESTION: ANSWER Would patient like to participate in any Care Coordination programs (if applicable): : Not applicable PROVIDER NETWORKING REVIEW DATE: 07/25/2020 SERVICE TYPE: [facility] Facility REVIEWER: Holly Gonzalez PATIENT: DONALD MARIE ENCOUNTER: [id number] MEDICAL RECORD#: [id number] ADMISSION DATE: 07/22/2020 DISCHARGE DATE: ATTENDING MD: IVÁN ANGELES : AGE: 79 MARITAL STATUS: M DC PLAN ID: [id number] FACILITY: [facility] PRINTED ON: 07/28/20 7:31 CT All edits/amendments must be made on the electronic document DICTATION DATE: 07/28/20730 HOIST MECHANIC: FRANCESCO 07/28/20730 RPT#: [id number] DC DATE: STATUS: ADM IN [facility] [address] [place] [address] END OF REPORT
--- NOTE | 2020-07-28 08:22 | NUR ---
0700 BEDSIDE REPORT RECEIVED AWAKE ALERT PULLED UP IN BED WITH ASSIST X 2 WOUND VAC FUNCTIONING PROPERLY WITHOUT ANY LEAKS DETECTED
[2020-07-28 08:43] VITALS: BP 135/96
[2020-07-28 13:01] VITALS: BP 133/95
--- NOTE | 2020-07-28 14:30 | NUR ---
Nutrition follow-up: RDN visited with pt during rounds. Pt is very unhappy with modified mechanical soft diet and continues with poor po intake. Pt states I need to fire all the cooks. Pt had oatmeal, milk, applesauce, Ensure on breakfast tray and refused to eat any of it. RDN provided a 2% milk for pt and she drank it all. RDN ordered whole milk on every tray. Pt is ordered Vanilla Ensure but she wants plain Ensure?? If medically feasible, pt would benefit from nutrition support; possible PEG tube placement and TF started if family, pt and physician agree. RDN will follow-up on pts progress toward nutrition goals in3-4 days.
--- NOTE | 2020-07-28 15:21 | MORECARE ---
CASE MANAGEMENT DISCHARGE SUMMARY PATIENT: DONALD MARIE UNIT: [id number] ADM DATE: 07/22/20 AGE: 79 : 42 SEX: F ROOM/BED: D.2206 AUTHOR: MAZIN,DOC PHYSICIAN: REFERRING PHYSICIAN: IVÁN LEÓN MD DATE OF SERVICE: 07/28/20 Case Management Discharge Planning Summary COMMENTS ENTERED DATE: 07/28/20 15:13 CT COMMENT TYPE: Discharge Planning REVIEWER: Mitzi Puentesken PATIENT WAS ACCEPTED TO BOTH [facility] AND [facility], SHE WANTED TO GO TO [facility] PER HER SON WHEN THE PATIENT IS ABLE TO DC SHE WILL DC TO [facility] SN[facility] TO FOLLOW AND ASSIST NEEDED ENTERED DATE: 07/28/20 7:27 CT COMMENT TYPE: Discharge Planning REVIEWER: Mitzi Crawley SPOKE WITH THE PATIENTS SON YESTERDAY EVENING AND HE ASKED ABOUT HIS MOTHERS OPTIONS AND HE STATED THAT HIS MOTHER ASKED IF SHE COULD GO TO [facility]. I EXPLAINED TO HIM THAT I HAD SENT A REFERRAL ALREADY TO [facility], BUT I WOULD BE HAPPY TO SEND IT TO [facility]. HE WOULD LIKE ME TO DO THAT AND THEN GIVEN HIS MOM THE OPTION IF SHE IS ACCEPTED AT BOTH. I HAVE SENT THE REFERRAL THIS MORNING TO [facility] AND NOTIFIED [facility] TO FOLLOW AND ASSIST ENTERED DATE: 07/27/20 10:17 CT COMMENT TYPE: Discharge Planning REVIEWER: Mitzi Denisa CALLED GENNA AT [facility] FOR AN UPDATE. SHE IS NEEDING THE WOUND MEASURMENTS I HAVE ASKED NURSING TO GET ME THEM SO I CAN FAX THEM TO [facility] TO FOLLOW AND ASSIST NEEDED ENTERED DATE: 07/26/20 9:51 CT COMMENT TYPE: Discharge Planning REVIEWER: Mitzi Crawley SPOKE WITH GENNA AT [facility] , SOON THE OT AND PT MALIKAL GET IN THE SYSTEM, I WILL SEND THEM TO HER AND SHE WILL GET BACK WITH ME CM TO FOLLOW AND ASSIST ENTERED DATE: 07/26/20 8:11 CT COMMENT TYPE: Discharge Planning REVIEWER: Mitzi Crawley CALLED AND LEFT MESSAGE WITH GENNA AT [facility] ABOUT THE REFERRAL WILL WAIT TO HEAR BACK FROM HER ENTERED DATE: 07/25/20 14:32 CT COMMENT TYPE: Discharge Planning REVIEWER: Holly Gonzalez CLINICALS FAXED TO [facility]. WAITING CALL BACK. Appended by Holly Gonzalez on 07/25/2020 14:33 CDT: ERROR! CLINICALS WERE FAXED TO [facility] FOR SNF. DCP REVIEW SUMMARY ANTICIPATED D/C DATE: EXPECTED LOS : CASE STATUS: DCP Initiated INITIAL REVIEW: 07/21/2020 INITIAL REVIEWER: Holly Gonzalez FINAL DISCHARGE DISPOSITION: : FINAL REVIEWER: FINAL REVIEW DATE: DCP Focus Questions & Answers DCP Screen QUESTION: ANSWER High Risk Factors: : Polypharmacy (greater than 10 meds) DCP Evaluation QUESTION: ANSWER Patient's ability to cope with chronic illness : d. No chronic illness Would patient like to participate in any Care Coordination programs (if applicable): : Not applicable Mental health screen: : No mental health history DCP Re-evaluation QUESTION: ANSWER Would patient like to participate in any Care Coordination programs (if applicable): : Not applicable PROVIDER NETWORKING REVIEW DATE: 07/25/2020 SERVICE TYPE: Intermediate Facility REVIEWER: Holly Gonzalez PATIENT: DONALD MARIE ENCOUNTER: [id number] MEDICAL RECORD#: [id number] ADMISSION DATE: 07/22/2020 DISCHARGE DATE: ATTENDING MD: IVÁN ANGELES : AGE: 79 MARITAL STATUS: M DC PLAN ID: [id number] FACILITY: [facility] PRINTED ON: 07/28/20 15:21 CT All edits/amendments must be made on the electronic document DICTATION DATE: 07/28/201520 BULK PALLET BUILDER: FRANCESCO 07/28/201520 RPT#: [id number] DC DATE: STATUS: ADM IN [facility] [address] [place] [address] END OF REPORT
--- NOTE | 2020-07-28 17:09 | NUR ---
OT NOTE: PT REQUIRED MAX A FOR BED MOBILITY. PT REQUIRED TOTAL A FOR LB HYGIENE. PT COMPLETED HAND HYGIENE WITH MOD A. RAZO REPORTED STOOL APPEARED TARRY. PT CONTINUED TO HAVE BM DURING SESSION. NOTIFIED NURSING. [phone] THANK YOU,DANNI RIVERA
[2020-07-28 17:34] VITALS: BP 134/86
[2020-07-28 20:00] VITALS: BP 103/68
[2020-07-29] VITALS: BP 112/71
[2020-07-29 04:00] VITALS: BP 134/88
[2020-07-29 08:56] VITALS: BP 131/89
[2020-07-29 09:47] LABS: BASOPHILS 0.4 % (0-2); EOSINOPHILS 2.9 % (0-7); HEMATOCRIT 35.8 % (36.0-48.0); HEMOGLOBIN 11.8 g/dL (12-16); LYMPHOCYTES 13.2 % (15-50); MCH 28.6 pg (26.0-34.0); MCHC 32.9 g/dL (31.0-37.0); MCV 86.9 fL (80.0-100.0); MEAN PLATELET VOLUME 6.6 fL (7.4-10.4); MONOCYTES 7.7 % (2-11); NEUTROPHILS 75.8 % (40-80); PLATELET COUNT 252 10x3/uL (130-400); RBC 4.12 10x6/uL (4.00-5.40); RDW 16.3 % (11.5-14.5); WBC 9.2 10x3/uL (4.8-10.8)
[2020-07-29 10:03] LABS: CALC OSMOLALITY 286 mosm/kg (275-300); CARBON DIOXIDE 19.2 mmol/L (21.0-32.0); CHLORIDE - SERUM 113 mmol/L (98-107); CREATININE - SERUM 0.5 mg/dL (0.6-1.3); GLUCOSE 128 mg/dL (74-106); SODIUM 142 mmol/L (136-145); UREA NITROGEN 18 mg/dL (7-18); eGFR NON AFRICAN AMERICAN > 90 mL/min (90-120)
[2020-07-29 10:12] LABS: POTASSIUM - SERUM 4.2 mmol/L (3.5-5.1)
--- NOTE | 2020-07-29 10:17 | NUR ---
PT GONE FOR PROCEDURE
[2020-07-29 12:46] VITALS: BP 125/87
[2020-07-29] MEDS ORDERED: MACROBID100 MG PO (13:43)
[2020-07-29] MEDS ORDERED: NYSTATIN100000 UN4 PO (13:44)
[2020-07-29] MEDS ORDERED: PROTONIX40 MG PO (13:46)
--- NOTE | 2020-07-29 14:24 | MORECARE ---
CASE MANAGEMENT DISCHARGE SUMMARY PATIENT: DONALD MARIE UNIT: [id number] ADM DATE: 07/22/20 AGE: 79 : 42 SEX: F ROOM/BED: D.2206 AUTHOR: MAZIN,DOC PHYSICIAN: REFERRING PHYSICIAN: IVÁN LEÓN MD DATE OF SERVICE: 07/29/20 Case Management Discharge Planning Summary COMMENTS ENTERED DATE: 07/29/20 14:23 CT COMMENT TYPE: Discharge Planning REVIEWER: Mitzi Crawley [facility] THEY WILL PICK HER UP IN THEIR VAN, SHE WILL BE GOING TO A SKILLED BED IMM SERVED AND EXPLAINED ENTERED DATE: 07/28/20 15:13 CT COMMENT TYPE: Discharge Planning REVIEWER: Mitzi Crawley PATIENT WAS ACCEPTED TO BOTH [facility] AND [facility], SHE WANTED TO GO TO [facility] PER HER SON WHEN THE PATIENT IS ABLE TO DC SHE WILL DC TO [facility]DC CM TO FOLLOW AND ASSIST NEEDED ENTERED DATE: 07/28/20 7:27 CT COMMENT TYPE: Discharge Planning REVIEWER: Mitzi Crawley SPOKE WITH THE PATIENTS SON YESTERDAY EVENING AND HE ASKED ABOUT HIS MOTHERS OPTIONS AND HE STATED THAT HIS MOTHER ASKED IF SHE COULD GO TO [facility]. I EXPLAINED TO HIM THAT I HAD SENT A REFERRAL ALREADY TO [facility], BUT I WOULD BE HAPPY TO SEND IT TO [facility]. HE WOULD LIKE ME TO DO THAT AND THEN GIVEN HIS MOM THE OPTION IF SHE IS ACCEPTED AT BOTH. I HAVE SENT THE REFERRAL THIS MORNING TO [facility] AND NOTIFIED NEFTALY [facility] TO FOLLOW AND ASSIST ENTERED DATE: 07/27/20 10:17 CT COMMENT TYPE: Discharge Planning REVIEWER: Mitzi Crawley CALLED GENNA AT [facility] FOR AN UPDATE. SHE IS NEEDING THE WOUND MEASURMENTS I HAVE ASKED NURSING TO GET ME THEM SO I CAN FAX THEM TO [facility] TO FOLLOW AND ASSIST NEEDED ENTERED DATE: 07/26/20 9:51 CT COMMENT TYPE: Discharge Planning REVIEWER: Mitzi Crawley SPOKE WITH GENNA AT [facility] , SOON THE OT AND PT EVAL GET IN THE SYSTEM, I WILL SEND THEM TO HER AND SHE WILL GET BACK WITH ME CM TO FOLLOW AND ASSIST ENTERED DATE: 07/26/20 8:11 CT COMMENT TYPE: Discharge Planning REVIEWER: Mitzi Crawley CALLED AND LEFT MESSAGE WITH GENNA AT [facility] ABOUT THE REFERRAL WILL WAIT TO HEAR BACK FROM HER ENTERED DATE: 07/25/20 14:32 CT COMMENT TYPE: Discharge Planning REVIEWER: Holly Gonzalez CLINICALS FAXED TO [facility]. WAITING CALL BACK. Appended by Holly Gonzalez on 07/25/2020 14:33 CDT: ERROR! CLINICALS WERE FAXED TO [facility] FOR SNF. DCP REVIEW SUMMARY ANTICIPATED D/C DATE: EXPECTED LOS : CASE STATUS: DCP Initiated INITIAL REVIEW: 07/21/2020 INITIAL REVIEWER: Holly Gonzalez FINAL DISCHARGE DISPOSITION: 03 : Discharged/Trans to SNF with Medicare Certification in Anticipation of Skilled Care FINAL REVIEWER: FINAL REVIEW DATE: DCP Focus Questions & Answers DCP Screen QUESTION: ANSWER High Risk Factors: : Polypharmacy (greater than 10 meds) DCP Evaluation QUESTION: ANSWER Patient's ability to cope with chronic illness : d. No chronic illness Would patient like to participate in any Care Coordination programs (if applicable): : Not applicable Mental health screen: : No mental health history DCP Re-evaluation QUESTION: ANSWER Would patient like to participate in any Care Coordination programs (if applicable): : Not applicable PROVIDER NETWORKING REVIEW DATE: 07/25/2020 SERVICE TYPE: Fdc Facility REVIEWER: Holly Gonzalez PATIENT: DONALD MARIE ENCOUNTER: [id number] MEDICAL RECORD#: [id number] ADMISSION DATE: 07/22/2020 DISCHARGE DATE: ATTENDING MD: IVÁN ANGELES : AGE: 79 MARITAL STATUS: M DC PLAN ID: [id number] FACILITY: [facility] PRINTED ON: 07/29/20 14:24 CT All edits/amendments must be made on the electronic document DICTATION DATE: 07/29/201423 RISK SPECIALIST: FRANCESCO 07/29/201423 RPT#: [id number] DC DATE: STATUS: ADM IN [facility] [address] [place] [address] END OF REPORT
--- NOTE | 2020-07-29 15:04 | MORECARE ---
CASE MANAGEMENT DISCHARGE SUMMARY PATIENT: DONALD MARIE UNIT: [id number] ADM DATE: 07/22/20 AGE: 79 : 42 SEX: F ROOM/BED: D.2206 AUTHOR: MAZIN,DOC PHYSICIAN: REFERRING PHYSICIAN: IVÁN LEÓN MD DATE OF SERVICE: 07/29/20 Case Management Discharge Planning Summary COMMENTS ENTERED DATE: 07/29/20 14:59 CT COMMENT TYPE: Discharge Planning REVIEWER: Mitzi Crawley [place] WILL BE HERE AT 1600 TO PICK HER UP, SHE WAS GOING TO CALL HER SON AND LET HIM KNOW ENTERED DATE: 07/29/20 14:23 CT COMMENT TYPE: Discharge Planning REVIEWER: Mitzi Crawley [facility] THEY WILL PICK HER UP IN THEIR VAN, SHE WILL BE GOING TO A SKILLED BED IMM SERVED AND EXPLAINED ENTERED DATE: 07/28/20 15:13 CT COMMENT TYPE: Discharge Planning REVIEWER: Mitzi Crawley PATIENT WAS ACCEPTED TO BOTH [place] AND [facility], SHE WANTED TO GO TO [place] PER HER SON WHEN THE PATIENT IS ABLE TO DC SHE WILL DC TO [place] JAIL TO FOLLOW AND ASSIST NEEDED ENTERED DATE: 07/28/20 7:27 CT COMMENT TYPE: Discharge Planning REVIEWER: Mitzi Crawley SPOKE WITH THE PATIENTS SON YESTERDAY EVENING AND HE ASKED ABOUT HIS MOTHERS OPTIONS AND HE STATED THAT HIS MOTHER ASKED IF SHE COULD GO TO [facility]. I EXPLAINED TO HIM THAT I HAD SENT A REFERRAL ALREADY TO [place], BUT I WOULD BE HAPPY TO SEND IT TO [facility]. HE WOULD LIKE ME TO DO THAT AND THEN GIVEN HIS MOM THE OPTION IF SHE IS ACCEPTED AT BOTH. I HAVE SENT THE REFERRAL THIS MORNING TO [facility] AND NOTIFIED NEFTALY [facility] TO FOLLOW AND ASSIST ENTERED DATE: 07/27/20 10:17 CT COMMENT TYPE: Discharge Planning REVIEWER: Mitzi Denisa CALLED GENNA AT [place] FOR AN UPDATE. SHE IS NEEDING THE WOUND MEASURMENTS I HAVE ASKED NURSING TO GET ME THEM SO I CAN FAX THEM TO [facility] TO FOLLOW AND ASSIST NEEDED ENTERED DATE: 07/26/20 9:51 CT COMMENT TYPE: Discharge Planning REVIEWER: Mitzi Crawley SPOKE WITH GENNA AT [facility] , SOON THE OT AND PT EVAL GET IN THE SYSTEM, I WILL SEND THEM TO HER AND SHE WILL GET BACK WITH ME TO FOLLOW AND ASSIST ENTERED DATE: 07/26/20 8:11 CT COMMENT TYPE: Discharge Planning REVIEWER: Mitzi Crawley CALLED AND LEFT MESSAGE WITH GENNA AT [place] ABOUT THE REFERRAL WILL WAIT TO HEAR BACK FROM HER ENTERED DATE: 07/25/20 14:32 CT COMMENT TYPE: Discharge Planning REVIEWER: Holly Gonzalez CLINICALS FAXED TO [facility]. WAITING CALL BACK. Appended by Holly Gonzalez on 07/25/2020 14:33 CDT: ERROR! CLINICALS WERE FAXED TO [place] FOR SNF. DCP REVIEW SUMMARY ANTICIPATED D/C DATE: EXPECTED LOS : CASE STATUS: DCP Initiated INITIAL REVIEW: 07/21/2020 INITIAL REVIEWER: Holly Gonzalez FINAL DISCHARGE DISPOSITION: 03 : Discharged/Trans to SNF with Medicare Certification in Anticipation of Skilled Care FINAL REVIEWER: FINAL REVIEW DATE: DCP Focus Questions & Answers DCP Screen QUESTION: ANSWER High Risk Factors: : Polypharmacy (greater than 10 meds) DCP Evaluation QUESTION: ANSWER Patient's ability to cope with chronic illness : d. No chronic illness Would patient like to participate in any Care Coordination programs (if applicable): : Not applicable Mental health screen: : No mental health history DCP Re-evaluation QUESTION: ANSWER Would patient like to participate in any Care Coordination programs (if applicable): : Not applicable PROVIDER NETWORKING REVIEW DATE: 07/25/2020 SERVICE TYPE: Correction Facility REVIEWER: Holly Gonzalez PATIENT: DONALD MARIE ENCOUNTER: [id number] MEDICAL RECORD#: [id number] ADMISSION DATE: 07/22/2020 DISCHARGE DATE: ATTENDING MD: IVÁN ANGELES : AGE: 79 MARITAL STATUS: M DC PLAN ID: [id number] FACILITY: [facility] PRINTED ON: 07/29/20 15:04 CT All edits/amendments must be made on the electronic document DICTATION DATE: 07/29/20 1504 CERTIFIED MEDICINE AIDE: FRANCESCO 07/29/20 1504 RPT#: [id number] DC DATE: STATUS: ADM IN [facility] [address] [place] [address] END OF REPORT
--- NOTE | 2020-07-29 15:40 | NUR ---
DISCHARGE INSTRUCTIONS REVIEWED AND SIGNED WITH PT, ALL QUESTIONS ANSWERED, PT VERBALIZES UNDERSTANDING
--- NOTE | 2020-07-29 16:27 | NUR ---
[facility] HERE TO GET PT, BELONGINGS GATHERED, PT DRESSED, IV REMOVED, TIP INTACT, WOUND VAC SWITCH TO PORTABLE MACHINE, PT LEFT VIA WHEELCHAIR IN STABLE CONDITION, NO SIGNS OF DISTRESS
--- NOTE | 2020-07-29 16:32 | MORECARE ---
CASE MANAGEMENT DISCHARGE SUMMARY PATIENT: DONALD MARIE UNIT: [id number] ADM DATE: 07/22/20 AGE: 79 : 42 SEX: F ROOM/BED: D.2206 AUTHOR: MAZIN,DOC PHYSICIAN: REFERRING PHYSICIAN: IVÁN LEÓN MD DATE OF SERVICE: 07/29/20 Case Management Discharge Planning Summary COMMENTS ENTERED DATE: 07/29/20 14:59 CT COMMENT TYPE: Discharge Planning REVIEWER: Mitzi Crawley [facility] WILL BE HERE AT 1600 TO PICK HER UP, SHE WAS GOING TO CALL HER SON AND LET HIM KNOW ENTERED DATE: 07/29/20 14:23 CT COMMENT TYPE: Discharge Planning REVIEWER: Mitzi Crawley [facility] THEY WILL PICK HER UP IN THEIR VAN, SHE WILL BE GOING TO A SKILLED BED IMM SERVED AND EXPLAINED ENTERED DATE: 07/28/20 15:13 CT COMMENT TYPE: Discharge Planning REVIEWER: Mitzi Crawley PATIENT WAS ACCEPTED TO BOTH [facility] AND [facility], SHE WANTED TO GO TO [facility] PER HER SON WHEN THE PATIENT IS ABLE TO DC SHE WILL DC TO [facility] TO FOLLOW AND ASSIST NEEDED ENTERED DATE: 07/28/20 7:27 CT COMMENT TYPE: Discharge Planning REVIEWER: Mitzi Crawley SPOKE WITH THE PATIENTS SON YESTERDAY EVENING AND HE ASKED ABOUT HIS MOTHERS OPTIONS AND HE STATED THAT HIS MOTHER ASKED IF SHE COULD GO TO [facility]. I EXPLAINED TO HIM THAT I HAD SENT A REFERRAL ALREADY TO [facility], BUT I WOULD BE HAPPY TO SEND IT TO [facility]. HE WOULD LIKE ME TO DO THAT AND THEN GIVEN HIS MOM THE OPTION IF SHE IS ACCEPTED AT BOTH. I HAVE SENT THE REFERRAL THIS MORNING TO [facility] AND NOTIFIED [facility] TO FOLLOW AND ASSIST ENTERED DATE: 07/27/20 10:17 CT COMMENT TYPE: Discharge Planning REVIEWER: Mitzi Denisa CALLED GENNA AT [facility] FOR AN UPDATE. SHE IS NEEDING THE WOUND MEASURMENTS I HAVE ASKED NURSING TO GET ME THEM SO I CAN FAX THEM TO [facility] TO FOLLOW AND ASSIST NEEDED ENTERED DATE: 07/26/20 9:51 CT COMMENT TYPE: Discharge Planning REVIEWER: Mitzi Crawley SPOKE WITH GENNA AT [facility] , SOON THE OT AND PT EVAL GET IN THE SYSTEM, I WILL SEND THEM TO HER AND SHE WILL GET BACK WITH ME TO FOLLOW AND ASSIST ENTERED DATE: 07/26/20 8:11 CT COMMENT TYPE: Discharge Planning REVIEWER: Mitzi Crawley CALLED AND LEFT MESSAGE WITH GENNA AT [facility] ABOUT THE REFERRAL WILL WAIT TO HEAR BACK FROM HER ENTERED DATE: 07/25/20 14:32 CT COMMENT TYPE: Discharge Planning REVIEWER: Holly Gonzalez CLINICALS FAXED TO [facility]. WAITING CALL BACK. Appended by Holly Gonzalez on 07/25/2020 14:33 CDT: ERROR! CLINICALS WERE FAXED TO [facility] FOR SNF. DCP REVIEW SUMMARY ANTICIPATED D/C DATE: EXPECTED LOS : CASE STATUS: DCP Initiated INITIAL REVIEW: 07/21/2020 INITIAL REVIEWER: Holly Gonzalez FINAL DISCHARGE DISPOSITION: 03 : Discharged/Trans to SNF with Medicare Certification in Anticipation of Skilled Care FINAL REVIEWER: FINAL REVIEW DATE: DCP Focus Questions & Answers DCP Screen QUESTION: ANSWER High Risk Factors: : Polypharmacy (greater than 10 meds) DCP Evaluation QUESTION: ANSWER Patient's ability to cope with chronic illness : d. No chronic illness Would patient like to participate in any Care Coordination programs (if applicable): : Not applicable Mental health screen: : No mental health history DCP Re-evaluation QUESTION: ANSWER Would patient like to participate in any Care Coordination programs (if applicable): : Not applicable PROVIDER NETWORKING REVIEW DATE: 07/25/2020 SERVICE TYPE: Mcfp Facility REVIEWER: Holly Gonzalez PATIENT: DONALD MARIE ENCOUNTER: [id number] MEDICAL RECORD#: [id number] ADMISSION DATE: 07/22/2020 DISCHARGE DATE: 07/29/2020 ATTENDING MD: IVÁN ANGELES : AGE: 79 MARITAL STATUS: M DC PLAN ID: [id number] FACILITY: [facility] PRINTED ON: 07/29/20 16:32 CT All edits/amendments must be made on the electronic document DICTATION DATE: 07/29/201631 AIR BOATSWAIN: FRANCESCO 07/29/201631 RPT#: [id number] DC DATE:07/29/20 STATUS: DIS IN [facility] [address] [place] [address] END OF REPORT
--- NOTE | 2020-07-29 17:04 | NUR ---
OT NOTE: PT COMPLETED SUPINE TO SIT WITH MAX A . PT COMPLETED ADL MOB WITH MOD A WITH WALKER. PT REQUIRED TOTAL A WITH EVA SOCK. PT REQUIRED MAX A FOR EVA GOWN. [phone] THANK YOU,DANNI RIVERA
--- NOTE | 2020-08-02 15:34 | MORECARE ---
CASE MANAGEMENT DISCHARGE SUMMARY PATIENT: DONALD MARIE UNIT: [id number] ADM DATE: 07/22/20 AGE: 79 : 42 SEX: F ROOM/BED: D.2206 AUTHOR: MAZIN,DOC PHYSICIAN: REFERRING PHYSICIAN: IVÁN LEÓN MD DATE OF SERVICE: 08/02/20 Case Management Discharge Planning Summary COMMENTS ENTERED DATE: 07/29/20 14:59 CT COMMENT TYPE: Discharge Planning REVIEWER: Mitzi Crawley [place] WILL BE HERE AT 1600 TO PICK HER UP, SHE WAS GOING TO CALL HER SON AND LET HIM KNOW ENTERED DATE: 07/29/20 14:23 CT COMMENT TYPE: Discharge Planning REVIEWER: Mitzi Crawley [facility] THEY WILL PICK HER UP IN THEIR VAN, SHE WILL BE GOING TO A SKILLED BED IMM SERVED AND EXPLAINED ENTERED DATE: 07/28/20 15:13 CT COMMENT TYPE: Discharge Planning REVIEWER: Mitzi Crawley PATIENT WAS ACCEPTED TO BOTH [place] AND [facility], SHE WANTED TO GO TO [place] PER HER SON WHEN THE PATIENT IS ABLE TO DC SHE WILL DC TO [facility] RET[facility] TO FOLLOW AND ASSIST NEEDED ENTERED DATE: 07/28/20 7:27 CT COMMENT TYPE: Discharge Planning REVIEWER: Mitzi Crawley SPOKE WITH THE PATIENTS SON YESTERDAY EVENING AND HE ASKED ABOUT HIS MOTHERS OPTIONS AND HE STATED THAT HIS MOTHER ASKED IF SHE COULD GO TO [facility]. I EXPLAINED TO HIM THAT I HAD SENT A REFERRAL ALREADY TO [place], BUT I WOULD BE HAPPY TO SEND IT TO [facility]. HE WOULD LIKE ME TO DO THAT AND THEN GIVEN HIS MOM THE OPTION IF SHE IS ACCEPTED AT BOTH. I HAVE SENT THE REFERRAL THIS MORNING TO [facility] AND NOTIFIED NEFTALY [facility] TO FOLLOW AND ASSIST ENTERED DATE: 07/27/20 10:17 CT COMMENT TYPE: Discharge Planning REVIEWER: Mitzi Denisa CALLED GENNA AT [facility] FOR AN UPDATE. SHE IS NEEDING THE WOUND MEASURMENTS I HAVE ASKED NURSING TO GET ME THEM SO I [facility] TO FOLLOW AND ASSIST NEEDED ENTERED DATE: 07/26/20 9:51 CT COMMENT TYPE: Discharge Planning REVIEWER: Mitzi Crawley SPOKE WITH GENNA AT [facility] , SOON THE OT AND PT EVAL GET IN THE SYSTEM, I WILL SEND THEM TO HER AND SHE WILL GET BACK WITH ME TO FOLLOW AND ASSIST ENTERED DATE: 07/26/20 8:11 CT COMMENT TYPE: Discharge Planning REVIEWER: Mitzi Crawley CALLED AND LEFT MESSAGE WITH GENNA AT [facility] ABOUT THE REFERRAL WILL WAIT TO HEAR BACK FROM HER ENTERED DATE: 07/25/20 14:32 CT COMMENT TYPE: Discharge Planning REVIEWER: Holly Gonzalez CLINICALS FAXED TO [facility]. WAITING CALL BACK. Appended by Holly Gonzalez on 07/25/2020 14:33 CDT: ERROR! CLINICALS WERE FAXED TO [facility] FOR SNF. DCP REVIEW SUMMARY ANTICIPATED D/C DATE: EXPECTED LOS : CASE STATUS: DCP Initiated INITIAL REVIEW: 07/21/2020 INITIAL REVIEWER: Holly Gonzalez FINAL DISCHARGE DISPOSITION: 03 : Discharged/Trans to SNF with Medicare Certification in Anticipation of Skilled Care FINAL REVIEWER: FINAL REVIEW DATE: DCP Focus Questions & Answers DCP Screen QUESTION: ANSWER High Risk Factors: : Polypharmacy (greater than 10 meds) DCP Evaluation QUESTION: ANSWER Patient's ability to cope with chronic illness : d. No chronic illness Would patient like to participate in any Care Coordination programs (if applicable): : Not applicable Mental health screen: : No mental health history DCP Re-evaluation QUESTION: ANSWER Would patient like to participate in any Care Coordination programs (if applicable): : Not applicable PROVIDER NETWORKING REVIEW DATE: 07/25/2020 SERVICE TYPE: Alf Facility REVIEWER: Holly Gonzalez PATIENT: DONALD MARIE ENCOUNTER: [id number] MEDICAL RECORD#: [id number] ADMISSION DATE: 07/22/2020 DISCHARGE DATE: 07/29/2020 ATTENDING MD: IVÁN ANGELES : AGE: 79 MARITAL STATUS: M DC PLAN ID: [id number] FACILITY: [facility] PRINTED ON: 08/02/20 15:33 CT All edits/amendments must be made on the electronic document DICTATION DATE: 08/02/20 153 COUNTERSINKER BALANCE SCREW HOLE: FRANCESCO 08/02/201532 RPT#: [id number] DC DATE:07/29/20 STATUS: DIS IN [facility] [address] [place] [address] END OF REPORT
== END 2020-07-29 16:30 | DRG 689 ==
LOC: D.ER 12:15 → D.MS 15:37 → OBSVTIME 15:37 → D.MS 15:37
PROVIDERS: Emergency Medicine; Family Medicine; Internal Medicine Gastroenterology; ADMIT Family Medicine; ATTEND Family Medicine
PROC: 0DB98ZX Excision of Duodenum, Via Natural or Artificial Opening Endoscopic, Diagnostic (ICD-10-PCS; principal; 2020-07-29 10:15)
DX: N39.0 Urinary tract infection, site not specified (principal); K26.4 Chronic or unspecified duodenal ulcer with hemorrhage; E43 Unspecified severe protein-calorie malnutrition; Z68.1 Body mass index [BMI] 19.9 or less, adult; R62.7 Adult failure to thrive; D64.9 Anemia, unspecified; B95.2 Enterococcus as the cause of diseases classified elsewhere; L89.159 Pressure ulcer of sacral region, unspecified stage; E86.0 Dehydration; Z86.73 Personal history of transient ischemic attack (TIA), and cerebral infarction without residual deficits; K44.9 Diaphragmatic hernia without obstruction or gangrene